=== PATIENT | female | born 1955 | race Caucasian/White ===

== ENCOUNTER 2018-10-17 13:47 | Outpatient (CLI) | payer BC ==
--- NOTE | 2018-10-17 14:35 | MMO ---
Bilateral MAMMO Bilat Screen [facility]. CLINICAL HISTORY: Patient is 62 years old and is seen for screening. The patient has the following family history of breast cancer: maternal grandmother, in her 70's. The patient has no personal history of cancer. The patient has a history of left Excisional Biopsy at age 17 - benign - cyst. VIEWS: The views performed were: bilateral craniocaudal with tomosynthesis and bilateral mediolateral oblique with tomosynthesis. FILMS COMPARED: The present examination has been compared to prior imaging studies performed at [facility] on 04/08/2004, 08/17/2005 and 03/26/2008, and at [facility] on 06/12/2002. MAMMOGRAM FINDINGS: There are scattered fibroglandular densities. Benign calcifications are noted bilaterally. There are no suspicious masses, suspicious calcifications, or new areas of architectural distortion. IMPRESSION: THERE IS NO MAMMOGRAPHIC EVIDENCE OF MALIGNANCY. A ROUTINE FOLLOW-UP MAMMOGRAM IN 1 YEAR IS RECOMMENDED. THE RESULTS OF THIS EXAM WERE SENT TO THE PATIENT. ACR BI-RADS Category 2 - Benign finding MAMMOGRAPHY NOTE: 1. A negative mammogram report should not delay a biopsy if a dominant of clinically suspicious mass is present. 2. Approximately 10% to 15% of breast cancers are not detected by mammography. 3. Adenosis and dense breasts may obscure an underlying neoplasm.
== END 2018-10-17 13:48 | disposition home or self-care (01) ==
LOC: BICMAMMO 13:47
PROVIDERS: ATTEND Family Medicine
DX: Z12.31 Encounter for screening mammogram for malignant neoplasm of breast (principal); Z80.3 Family history of malignant neoplasm of breast
CPT/HCPCS: 77063; 77067

== ENCOUNTER 2021-11-03 13:01 | Day surgery (SDC) | payer MEDICARE, BC | END 2021-11-03 13:35 | disposition home or self-care (01) | LOC: ONC/OP 13:01 | PROVIDERS: ATTEND Family Medicine | DX: C80.1 Malignant (primary) neoplasm, unspecified (principal) | CPT/HCPCS: 36591; J1642 ==

== ENCOUNTER 2022-02-05 14:39 | Day surgery (SDC) | payer MEDICARE, BC | END 2022-02-05 15:22 | disposition home or self-care (01) | LOC: ONC/OP 14:39 | PROVIDERS: ATTEND Family Medicine | DX: Z45.2 Encounter for adjustment and management of vascular access device (principal); C80.1 Malignant (primary) neoplasm, unspecified | CPT/HCPCS: 96523 ==

== ENCOUNTER 2022-05-14 14:19 | Day surgery (SDC) | payer MEDICARE, BC | END 2022-05-14 14:28 | disposition home or self-care (01) | LOC: ONC/OP 14:19 | PROVIDERS: ATTEND Family Medicine | DX: C80.1 Malignant (primary) neoplasm, unspecified (principal) ==

== ENCOUNTER 2022-08-21 13:13 | Day surgery (SDC) | payer MEDICARE, BC | END 2022-08-21 14:26 | disposition home or self-care (01) | LOC: ONC/OP 13:13 | PROVIDERS: ATTEND Family Medicine | DX: Z45.2 Encounter for adjustment and management of vascular access device (principal); C80.1 Malignant (primary) neoplasm, unspecified | CPT/HCPCS: 96523; J1642 ==

== ENCOUNTER → 2022-10-09 | Day surgery (SDC) | payer MEDICARE, BC | LOC: ONC/OP 16:39 | PROVIDERS: ATTEND Family Medicine | DX: Z45.2 Encounter for adjustment and management of vascular access device (principal) | CPT/HCPCS: 96523; J1642 ==

== ENCOUNTER 2023-01-07 14:22 | Day surgery (SDC) | payer MEDICARE, BC | END 2023-01-07 14:53 | disposition home or self-care (01) | LOC: ONC/OP 14:22 | PROVIDERS: ATTEND Family Medicine | DX: C56.1 Malignant neoplasm of right ovary (principal) | CPT/HCPCS: 96523; J1642 ==

== ENCOUNTER 2023-06-24 15:04 | Outpatient (CLI) | payer MEDICARE, BC | END 2023-06-24 15:05 | disposition home or self-care (01) | LOC: SCSMRI 15:04 | PROVIDERS: ATTEND Family Medicine | DX: M47.26 Other spondylosis with radiculopathy, lumbar region (principal); M51.16 Intervertebral disc disorders with radiculopathy, lumbar region; M47.815 Spondylosis without myelopathy or radiculopathy, thoracolumbar region; M47.817 Spondylosis without myelopathy or radiculopathy, lumbosacral region; M51.37 Other intervertebral disc degeneration, lumbosacral region | CPT/HCPCS: 72148 ==

== ENCOUNTER 2023-10-25 14:37 | Outpatient (CLI) | payer MEDICARE, BC | END 2023-10-25 14:38 | disposition home or self-care (01) | LOC: SCSMRI 14:37 | PROVIDERS: ATTEND Family Medicine | DX: R20.2 Paresthesia of skin (principal); M50.222 Other cervical disc displacement at C5-C6 level | CPT/HCPCS: 72141 ==

== ENCOUNTER 2023-11-04 12:50 | Day surgery (SDC) | payer MEDICARE, BC | END 2023-11-04 14:00 | disposition home or self-care (01) | LOC: ONC/OP 12:50 | PROVIDERS: ATTEND Family Medicine | DX: C56.1 Malignant neoplasm of right ovary (principal) | CPT/HCPCS: 96523; J1642 ==

== ENCOUNTER 2024-01-13 14:38 | Day surgery (SDC) | payer MEDICARE, BC | END 2024-01-13 15:00 | disposition home or self-care (01) | LOC: ONC/OP 14:38 | PROVIDERS: ATTEND Family Medicine | DX: C56.1 Malignant neoplasm of right ovary (principal) | CPT/HCPCS: 96523; J1642 ==

== ENCOUNTER 2024-03-06 12:04 | Day surgery (SDC) | payer MEDICARE, BC | END 2024-03-06 14:12 | disposition home or self-care (01) | LOC: ONC/OP 12:04 | PROVIDERS: ATTEND Family Medicine | DX: C56.1 Malignant neoplasm of right ovary (principal) | CPT/HCPCS: 96413; J1642 ==